=== PATIENT | female | born 1985 | race Caucasian/White ===

== ENCOUNTER 2017-12-20 06:07 | Inpatient (IN) | payer BC, OTHER ==
[2017-12-20] MEDS ORDERED: Oxytocin 10 Units/1 ML SDV ONE ×2 (06:52→07:36)
[2017-12-20] MEDS: Lactated Ringers 1,000 ML IV SCH ×2 (06:52→13:04)
[2017-12-20] MEDS ORDERED: Bupivacaine 0.75%/D5W 2 ML Amp ONE (07:24)
[2017-12-20] MEDS ORDERED: Phenylephrine 1% 10 MG/ML SDV ONE (07:31)
[2017-12-20] MEDS ORDERED: ePHEDrine 50 MG/ML SDV ONE (07:31)
[2017-12-20] MEDS ORDERED: Sodium Chloride 0.9% 20 ML ONE (07:32)
[2017-12-20] MEDS ORDERED: Lactated Ringers 1,000 ML ONE (07:36)
[2017-12-20] MEDS ORDERED: Ondansetron 4 MG/2 ML SDV ONE (07:36)
[2017-12-20] MEDS ORDERED: Clindamycin Phosphate 900 MG in Sodium Chloride 0.9% 100 ML IV ONE (08:00)
[2017-12-20] MEDS ORDERED: fentaNYL 100 MCG/2 ML SDV ONE ×2 (08:24→08:46)
[2017-12-20] MEDS: fentaNYL 100 MCG/2 ML SDV IVPUSH PRN ×6 (10:13→14:07)
--- NOTE | 2017-12-20 10:18 | OR ---
DATE OF PROCEDURE: 12/20/2017 PREOPERATIVE DIAGNOSIS: Term , multiparity, prior section. POSTOPERATIVE DIAGNOSES: Term , multiparity, prior section, true knot of the nuchal cord. PROCEDURE: Repeat section and bilateral tubal ligation. SURGEON: Willem Morales M.D. GOAT DRIVER: Melissa Grayson, nurse practitioner. Per ACOG standard of care guidelines, this procedure requires a first press operator. ANESTHESIA: Subarachnoid block. INDICATION: This 32-year-old white female is with her 3rd child. Her previous deliveries were by section. She currently is at 39 weeks gestation and is scheduled today for a repeat section. In addition, she has requested to the ethics committee and received permission for a bilateral tubal ligation. I counseled her for surgery including risks and alternatives, and she gave her informed consent to proceed. DESCRIPTION OF PROCEDURE: After adequate spinal anesthesia was obtained, a Beverly catheter was placed and a wedge was placed under her right flank. Her abdomen was prepped and draped in the usual sterile fashion. The leg compression stockings were in place and used during the entire procedure. Time-out was held. A Pfannenstiel incision was made. This was carried deep using Bovie cautery to the fascia. The fascia was divided, upper and lower subfascial flaps were developed. The muscles in the midline were . The peritoneum was elevated and incised. The peritoneal incision was extended to the length of the flaps using Bovie cautery while protecting underlying structures. Bladder flap was dissected free from the lower uterine segment over just a short area. A transverse lower uterine segment incision was then made releasing normal-appearing amniotic fluid. The incision was extended laterally and curved superiorly in both directions using bandage scissors as well as bluntly. The child's head was delivered. Melissa Grayson aspirated its nose and mouth free. The child was noted to have a nuchal cord. The child's body was delivered. The cord was doubly clamped and divided, and Melissa Grayson attended to the child. This was noted to be a baby boy, ultimately shown to have scores of 9 and 10. Cord blood was collected. The uterus was delivered up onto the anterior abdominal wall. The cord was noted to have a true knot in it. The placenta was delivered. The uterus was cleaned of residual membranes, all looked well. 10 units of Pitocin was directly injected into the uterine body and IV Pitocin was started by the Anesthesia Service. The transverse lower uterine segment incision was then closed with running locking stitch of #1 Vicryl. A 2nd running locking stitch of #1 Vicryl was placed over the 1st to further bolster the closure. The retrouterine space was irrigated and suctioned dry. The bilateral tubal ligation was then performed. We started with the right tube. It was grasped, elevated, and crossclamped forming a knuckle. A portion of this knuckle was excised and sent to pathology. The ends of the tube were crushed, cauterized, and suture ligated with 2-0 Prolene. The base of the knuckle was suture ligated with 2-0 Monocryl. Hemostasis was noted. Attention was then directed to the left tube. It was grasped and elevated and crossclamped forming a knuckle. A portion of the knuckle was excised and sent to pathology. The exposed ends of the tube were crushed, cauterized, and suture ligated with 2-0 Prolene. The base of the knuckle was suture ligated with 2-0 Monocryl. Hemostasis was noted. The bladder flap really did not exist as it was quite scarred and all we did was opened a little of it, nothing more was done at this point. The uterus was reduced back in the abdominal cavity. The muscles and peritoneum in the midline were closed with a running stitch of #2 Vicryl. The incision was irrigated and suctioned dry. The fascia was closed with a running stitch of #2 Vicryl. The incision was again irrigated and suctioned dry. A 4-0 Vicryl using a subcuticular stitch was placed to approximate the skin. Dermabond was applied. The patient tolerated the procedure well and was brought to the recovery room in good condition. Willem Morales MD /[id number]
[2017-12-20] MEDS: Acetaminophen/HYDROcodone 325-5 MG Tab PO PRN ×2 (10:40→21:46)
[2017-12-20] MEDS ORDERED: Lactated Ringers 500 ML IV ONE (11:38)
[2017-12-20] MEDS: Ondansetron 4 MG/2 ML SDV IVPUSH PRN ×3 (13:16→22:20)
[2017-12-20] MEDS ORDERED: Naloxone 0.4 MG/ML SDV IV PRN (14:25)
[2017-12-20] MEDS ORDERED: Lanolin 100% Cream 40 GM Tube TOP PRN (14:29)
[2017-12-20] MEDS ORDERED: fentaNYL/Normal Saline 600 MCG/30 ML PCA Vial IV PRN ×2 (14:30→17:46)
[2017-12-20] MEDS: Ketorolac 30 MG/ML SDV IVPUSH PRN ×2 (16:17→22:20)
[2017-12-20] MEDS: Docusate Sodium 100 MG Cap PO PRN (21:46)
[2017-12-21] MEDS: Lactated Ringers 1,000 ML IV SCH (02:46)
[2017-12-21] MEDS: Ketorolac 30 MG/ML SDV IVPUSH PRN ×3 (04:02→19:08)
[2017-12-21] MEDS: Docusate Sodium 100 MG Cap PO PRN (10:12)
--- NOTE | 2017-12-21 12:55 | PN ---
DATE OF SERVICE: 12/21/2017 SUBJECTIVE: The patient is doing very well today. Pain is well controlled. She has no nausea, vomiting, shortness of breath, or chest pain. OBJECTIVE: VITAL SIGNS: Stable. SKIN: Incision is healing well without signs of infection. ASSESSMENT: Status post . PLAN: The patient will have the Beverly removed. Continue work on diet, activity. Anticipate discharge in next 24 to 48 hours. Claus Jackson MD /[id number]
[2017-12-21] MEDS: Acetaminophen/HYDROcodone 325-5 MG Tab PO PRN ×3 (14:12→22:12)
[2017-12-22] MEDS: Acetaminophen/HYDROcodone 325-5 MG Tab PO PRN ×5 (02:32→19:50)
[2017-12-22] MEDS: Docusate Sodium 100 MG Cap PO PRN (08:48)
--- NOTE | 2017-12-22 09:35 | PCM.SURGPN ---
- General Info Date of Service: 12/22/17 Date of Surgery/Procedure: 12/20/17 POD#: 2 Post-Op Diagnosis: Section and BTL Admission Diagnosis/Problem: section Functional Status: Reports: Pain Controlled (Notes discomfort at end of her 4 hour pain Rx cycle. ), Tolerating Diet, Ambulating, Urinating, Incentive Spirometry - Review of Systems General: Reports: No Symptoms HEENT: Reports: No Symptoms Pulmonary: Reports: No Symptoms Cardiovascular: Reports: No Symptoms Gastrointestinal: Reports: Abdominal Pain (Pain at end of 4 hour pain Rx cycle. ) Genitourinary: Reports: No Symptoms Musculoskeletal: Reports: No Symptoms Skin: Reports: No Symptoms Neurological: Reports: No Symptoms Psychiatric: Reports: No Symptoms - Patient Data Vitals - Most Recent: Last Vital Signs Temp 97.7 F 12/22/17 08:35 Pulse 82 12/22/17 08:35 Resp 18 12/22/17 08:35 BP 130/60 12/22/17 08:35 Pulse Ox 97 12/22/17 08:35 Weight - Most Recent: 172 lb 6.4 oz I&O - Last 24 Hours: Intake & Output 12/21/17 12/22/17 12/22/17 22:59 06:59 14:59 Intake Total 500 Output Total 450 Balance 50 Lab Results Last 24 Hrs: Laboratory Results - last 24 hr 12/22/17 Range/Units 05:21 WBC 10.2 (4.5-11.0) K/uL RBC 3.28 L (3.30-5.50) M/uL Hgb 9.7 L (12.0-15.0) g/dL Hct 28.9 L (36.0-48.0) % MCV 88 (80-98) fL MCH 30 (27-31) pg MCHC 34 (32-36) % Plt Count 202 (150-400) K/uL Med Orders - Current: Current Medications Hydrocodone Bitart/Acetaminophen ([place] 325-5 Mg) 1 - 2 tab PO Q4H PRN PRN Reason: Pain Last Admin: 12/22/17 06:04 Dose: 2 tab Docusate Sodium (Colace) 100 mg PO DAILY PRN PRN Reason: Constipation Last Admin: 12/22/17 08:48 Dose: 100 mg Emollient Ointment (Lansinoh Hpa) 40 gm TOP ASDIRECTED PRN PRN Reason: nipples Last Admin: 12/20/17 14:49 Dose: 1 applic Naloxone HCl (Narcan) 0.1 mg IV ASDIRECTED PRN PRN Reason: DYSPNEA Ondansetron HCl (Zofran) 4 mg IVPUSH Q4H PRN PRN Reason: Nausea/Vomiting Last Admin: 12/20/17 22:20 Dose: 4 mg Discontinued Medications Bupivacaine HCl/Dextrose (Marcaine 0.75% Spinal) Confirm Administered Dose 2 ml .ROUTE .STK-MED ONE Stop: 12/20/17 07:25 Ephedrine Sulfate (Ephedrine Sulfate) Confirm Administered Dose 50 mg .ROUTE .STK-MED ONE Stop: 12/20/17 07:32 Fentanyl (Sublimaze) Confirm Administered Dose 100 mcg .ROUTE .STK-MED ONE Stop: 12/20/17 08:25 Fentanyl (Sublimaze) Confirm Administered Dose 100 mcg .ROUTE .STK-MED ONE Stop: 12/20/17 08:47 Fentanyl (Sublimaze) 50 mcg IVPUSH Q30M PRN PRN Reason: Pain Last Admin: 12/20/17 14:07 Dose: 50 mcg Fentanyl Citrate (Fentanyl In Ns 20 Mcg/Ml 30 Ml Human Resources Psychologist) 0 mcg IV ASDIRECTED PRN; Protocol PRN Reason: PAIN Last Admin: 12/20/17 14:39 Dose: 600 mcg Fentanyl Citrate (Fentanyl In Ns 20 Mcg/Ml 30 Ml Human Resources Psychologist) 25 mcg IV ASDIRECTED PRN ; Protocol PRN Reason: PAIN Last Admin: 12/21/17 03:58 Dose: 600 mcg Lactated Ringer's (Ringers, Lactated) 1,000 mls @ 100 mls/hr IV ASDIRECTED PACO Last Admin: 12/21/17 02:46 Dose: 100 mls/hr Sodium Chloride (Normal Saline) Confirm Administered Dose 20 mls @ as directed .ROUTE .STK-MED ONE Stop: 12/20/17 07:33 Clindamycin Phosphate 900 mg/ (Sodium Chloride) 106 mls @ 200 mls/hr IV ONETIME ONE Stop: 12/20/17 08:31 Last Admin: 12/20/17 08:40 Dose: 200 mls/hr Lactated Ringer's (Ringers, Lactated) Confirm Administered Dose 1,000 mls @ as directed .ROUTE .STK-MED ONE Stop: 12/20/17 07:37 Lactated Ringer's (Ringers, Lactated) 500 mls @ 500 mls/hr IV BOLUS ONE Stop: 12/20/17 12:37 Last Admin: 12/20/17 11:59 Dose: 500 mls/hr Ketorolac Tromethamine (Toradol) 30 mg IVPUSH Q6H PRN PRN Reason: Pain Stop: 12/25/17 16:03 Last Admin: 12/21/17 19:08 Dose: 30 mg Ondansetron HCl (Zofran) Confirm Administered Dose 4 mg .ROUTE .STK-MED ONE Stop: 12/20/17 07:37 Oxytocin (Pitocin) Confirm Administered Dose 10 unit .ROUTE .STK-MED ONE Stop: 12/20/17 06:53 Last Admin: 12/20/17 08:25 Dose: 10 unit Oxytocin (Pitocin) Confirm Administered Dose 20 unit .ROUTE .STK-MED ONE Stop: 12/20/17 07:37 Phenylephrine HCl (Olman-Synephrine) Confirm Administered Dose 10 mg .ROUTE .STK- MED ONE Stop: 12/20/17 07:32 - Exam Wound/Incisions: Healing Well, No Drainage General: Alert, Oriented, Cooperative, No Acute Distress Lungs: Clear to Auscultation, Normal Respiratory Effort Cardiovascular: Regular Rate, Regular Rhythm GI/Abdominal Exam: Normal Bowel Sounds Extremities: Normal Inspection Skin: Warm, Dry, Intact Neurological: No New Focal Deficit Psy/Mental Status: Alert, Normal Affect, Normal Mood - Problem List & Annotations (1) Status post repeat low transverse section SNOMED Code(s): 474076919, 40712752, 378678595, 125919531, 470140043 Code(s): Z98.89 - OTHER SPECIFIED POSTPROCEDURAL STATES * DO NOT USE * Status: Acute Current Visit: Yes - Problem List Review Problem List Initiated/Reviewed/Updated: Yes - My Orders Last 24 Hours: Active Orders 24 hr Category Date Time Status Ketorolac [Toradol] Med 12/22/17 09:30 Ordered 10 mg PO Q6H Medication Orders Hydrocodone Bitart/Acetaminophen ([place] 325-5 Mg) 1 - 2 tab PO Q4H PRN PRN Reason: Pain Last Admin: 12/22/17 06:04 Dose: 2 tab Admin: 12/22/17 02:32 Dose: 2 tab Admin: 12/21/17 22:12 Dose: 2 tab Admin: 12/21/17 18:17 Dose: 2 tab Admin: 12/21/17 14:12 Dose: 2 tab Admin: 12/20/17 21:46 Dose: 2 tab Docusate Sodium (Colace) 100 mg PO DAILY PRN PRN Reason: Constipation Last Admin: 12/22/17 08:48 Dose: 100 mg Admin: 12/21/17 10:12 Dose: 100 mg Admin: 12/20/17 21:46 Dose: 100 mg Emollient Ointment (Lansinoh Hpa) 40 gm TOP ASDIRECTED PRN PRN Reason: nipples Last Admin: 12/20/17 14:49 Dose: 1 applic Naloxone HCl (Narcan) 0.1 mg IV ASDIRECTED PRN PRN Reason: DYSPNEA Ondansetron HCl (Zofran) 4 mg IVPUSH Q4H PRN PRN Reason: Nausea/Vomiting Last Admin: 12/20/17 22:20 Dose: 4 mg Admin: 12/20/17 17:48 Dose: 4 mg Admin: 12/20/17 13:16 Dose: 4 mg - Assessment Assessment (Free Text/Narrative):: Doing well. She receives [place] q 4 hours and notes pain at the end of the 4 hour period. - Plan Plan (Free Text/Narrative):: Change Toradal to oral from IV. Probably home tomorrow.
[2017-12-22] MEDS: Ketorolac 10 MG Tab PO SCH ×3 (10:10→22:17)
[2017-12-22] MEDS: Docusate Sodium 100 MG Cap PO SCH (21:13)
[2017-12-23] MEDS: Acetaminophen/HYDROcodone 325-5 MG Tab PO PRN ×3 (00:16→09:47)
[2017-12-23] MEDS: Ketorolac 10 MG Tab PO SCH ×2 (03:34→09:07)
--- NOTE | 2017-12-23 06:14 | PCM.DCSUM1 ---
Discharge Summary - Hospital Course Free Text/Narrative:: This 32 year old white female was admitted on December 20, 2017 for a repeat section and bilateral tubal ligation. The [facility] was approved by the ethics committee. The operation was performed delivering a boy with APGARS of 9 and 10. Her post operative recovery was unremarkable. She is eating well, afebrile and would like to go home at the present time. She is discharged home in good condition. Brief History: See above narrative. Diagnosis: Stroke: No Modified Bullock Scale: No Symptoms at All Modified Bullock Scale Score: 0 - Discharge Data Discharge Date: 12/23/17 Discharge Disposition: Home, Self-Care 01 Condition: Good - Discharge Diagnosis/Problem(s) (1) Status post repeat low transverse section SNOMED Code(s): 548979710, 45011706, 205630984, 350404998, 404776086 ICD Code: Z98.89 - OTHER SPECIFIED POSTPROCEDURAL STATES * DO NOT USE * Status: Acute Current Visit: Yes - Patient Summary/Data Operative Procedure(s) Performed: Repeat section and bilateral tubal ligation. Consults: Consultations 12/20/17 09:28 Respiratory Care Assess and Treatment [CONS] Routine Comment: Physician Instructions: Hospital Course: See above narrative. - Patient Instructions Diet: Usual Diet as Tolerated Activity: No Lifting Over 10 Pounds, No Strenuous Activities (For six weeks from surgery. ) Driving, Other: Do not drive while taking narcotic pain medication. Showering/Bathing: May Shower Notify Provider of: Fever, Increased Pain, Swelling and Redness, Drainage, Nausea and/or Vomiting - Discharge Plan *PRESCRIPTION DRUG MONITORING PROGRAM REVIEWED*: No *COPY OF PRESCRIPTION DRUG MONITORING REPORT IN PATIENT URI: No Prescriptions/Med Rec: Acetaminophen/HYDROcodone [[place] 325-5 MG] 1 - 2 tab PO Q4H PRN #30 tablet PRN Reason: Pain Docusate Sodium [Colace] 100 mg PO BID #50 cap Ketorolac [Toradol] 10 mg PO Q6H #10 tablet Home Medications: Home Meds Vit 90/Iron Fum/Folic [ Formula] 1 tab PO DAILY 07/29/14 [ History] Fluticasone Propionate [Flonase] 1 spray NS DAILY 10/28/14 [History] Guaifenesin/Pseudoephedrne HCl [Mucinex D ER] 1 each PO ASDIRECTED 10/28/14 [ History] Ondansetron HCl [Zofran] 4 mg PO Q8H 12/18/17 [History] Oxymetazoline HCl [No Drip Nasal [place]] 1 applic BILL ASDIRECTED 12/18/17 [ History] Tacrolimus [Protopic 0.1% Oint] 1 applic TOP BID 12/18/17 [History] Acetaminophen/HYDROcodone [[place] 325-5 MG] 1 - 2 tab PO Q4H PRN #30 tablet 12/23 [Rx] Docusate Sodium [Colace] 100 mg PO BID #50 cap 12/23/17 [Rx] Ketorolac [Toradol] 10 mg PO Q6H #10 tablet 12/23/17 [Rx] Lanolin [Lansinoh HPA] 40 gm TOP ASDIRECTED PRN tube 12/23/17 [Rx] Referrals: Willem Morales MD [Physician] - (See me in [facility] in about two weeks. ) Melissa Grayson CNM [Primary Care Provider] - (See her in [facility] with child in about two weeks and about eight weeks. ) - Discharge Summary/Plan Comment DC Time >30 min.: No Discharge Summary/Plan Comment: See above narrative. - General Info Date of Service: 12/23/17 Subjective Update: Doing well and wants to go home. - Review of Systems General: Reports: No Symptoms HEENT: Reports: No Symptoms Pulmonary: Reports: No Symptoms Cardiovascular: Reports: No Symptoms Gastrointestinal: Reports: No Symptoms Genitourinary: Reports: No Symptoms Musculoskeletal: Reports: No Symptoms Skin: Reports: No Symptoms Neurological: Reports: No Symptoms Psychiatric: Reports: No Symptoms - Patient Data Vitals - Most Recent: Last Vital Signs Temp 97.5 F 12/23/17 03:00 Pulse 73 12/23/17 03:00 Resp 18 12/23/17 03:00 BP 119/60 12/23/17 03:00 Pulse Ox 96 12/23/17 03:00 Weight - Most Recent: 172 lb 6.4 oz I&O - Last 24 hours: Intake & Output 12/22/17 12/22/17 12/23/17 14:59 22:59 06:59 Intake Total 480 1600 Balance 480 1600 Lab Results - Last 24 hrs: Laboratory Results - last 24 hr 12/20/17 Range/Units 06:30 Antibody Identification Cancelled Med Orders - Current: Current Medications Hydrocodone Bitart/Acetaminophen ([place] 325-5 Mg) 1 - 2 tab PO Q4H PRN PRN Reason: Pain Last Admin: 12/23/17 05:28 Dose: 2 tab Docusate Sodium (Colace) 100 mg PO BID PACO Last Admin: 12/22/17 21:13 Dose: 100 mg Emollient Ointment (Lansinoh Hpa) 40 gm TOP ASDIRECTED PRN PRN Reason: nipples Last Admin: 12/20/17 14:49 Dose: 1 applic Ketorolac Tromethamine (Toradol) 10 mg PO Q6H [facility] Stop: 12/25/17 10:01 Last Admin: 12/23/17 03:34 Dose: 10 mg Naloxone HCl (Narcan) 0.1 mg IV ASDIRECTED PRN PRN Reason: DYSPNEA Ondansetron HCl (Zofran) 4 mg IVPUSH Q4H PRN PRN Reason: Nausea/Vomiting Last Admin: 12/20/17 22:20 Dose: 4 mg Discontinued Medications Bupivacaine HCl/Dextrose (Marcaine 0.75% Spinal) Confirm Administered Dose 2 ml .ROUTE .STK-MED ONE Stop: 12/20/17 07:25 Docusate Sodium (Colace) 100 mg PO DAILY PRN PRN Reason: Constipation Last Admin: 12/22/17 08:48 Dose: 100 mg Ephedrine Sulfate (Ephedrine Sulfate) Confirm Administered Dose 50 mg .ROUTE .STK-MED ONE Stop: 12/20/17 07:32 Fentanyl (Sublimaze) Confirm Administered Dose 100 mcg .ROUTE .STK-MED ONE Stop: 12/20/17 08:25 Fentanyl (Sublimaze) Confirm Administered Dose 100 mcg .ROUTE .STK-MED ONE Stop: 12/20/17 08:47 Fentanyl (Sublimaze) 50 mcg IVPUSH Q30M PRN PRN Reason: Pain Last Admin: 12/20/17 14:07 Dose: 50 mcg Fentanyl Citrate (Fentanyl In Ns 20 Mcg/Ml 30 Ml Patient Sitter) 0 mcg IV ASDIRECTED PRN; Protocol PRN Reason: PAIN Last Admin: 12/20/17 14:39 Dose: 600 mcg Fentanyl Citrate (Fentanyl In Ns 20 Mcg/Ml 30 Ml Patient Sitter) 25 mcg IV ASDIRECTED PRN ; Protocol PRN Reason: PAIN Last Admin: 12/21/17 03:58 Dose: 600 mcg Lactated Ringer's (Ringers, Lactated) 1,000 mls @ 100 mls/hr IV ASDIRECTED PACO Last Admin: 12/21/17 02:46 Dose: 100 mls/hr Sodium Chloride (Normal Saline) Confirm Administered Dose 20 mls @ as directed .ROUTE .STK-MED ONE Stop: 12/20/17 07:33 Clindamycin Phosphate 900 mg/ (Sodium Chloride) 106 mls @ 200 mls/hr IV ONETIME ONE Stop: 12/20/17 08:31 Last Admin: 12/20/17 08:40 Dose: 200 mls/hr Lactated Ringer's (Ringers, Lactated) Confirm Administered Dose 1,000 mls @ as directed .ROUTE .STK-MED ONE Stop: 12/20/17 07:37 Lactated Ringer's (Ringers, Lactated) 500 mls @ 500 mls/hr IV BOLUS ONE Stop: 12/20/17 12:37 Last Admin: 12/20/17 11:59 Dose: 500 mls/hr Ketorolac Tromethamine (Toradol) 30 mg IVPUSH Q6H PRN PRN Reason: Pain Stop: 12/25/17 16:03 Last Admin: 12/21/17 19:08 Dose: 30 mg Ondansetron HCl (Zofran) Confirm Administered Dose 4 mg .ROUTE .STK-MED ONE Stop: 12/20/17 07:37 Oxytocin (Pitocin) Confirm Administered Dose 10 unit .ROUTE .STK-MED ONE Stop: 12/20/17 06:53 Last Admin: 12/20/17 08:25 Dose: 10 unit Oxytocin (Pitocin) Confirm Administered Dose 20 unit .ROUTE .STK-MED ONE Stop: 12/20/17 07:37 Phenylephrine HCl (Olman-Synephrine) Confirm Administered Dose 10 mg .ROUTE .STK- MED ONE Stop: 12/20/17 07:32 - Exam General: Reports: Alert, Oriented, Cooperative, No Acute Distress Lungs: Reports: Clear to Auscultation, Normal Respiratory Effort Cardiovascular: Reports: Regular Rate, Regular Rhythm GI/Abdominal Exam: Normal Bowel Sounds Back Exam: Reports: Normal Inspection Extremities: Normal Inspection Skin: Reports: Warm, Dry, Intact Wound/Incisions: Reports: Healing Well Neurological: Reports: No New Focal Deficit Psy/Mental Status: Reports: Alert, Normal Affect, Normal Mood
[2017-12-23 07:22] VITALS: BP 123/73
[2017-12-23] MEDS: Docusate Sodium 100 MG Cap PO SCH (09:47)
== END 2017-12-23 10:17 | disposition home or self-care (01) | DRG 540 ==
LOC: JP.SDS 06:07 → JP.OB 08:21 → JP.MS 09:00
PROVIDERS: ADMIT Nurse Practitioner Family; ATTEND Surgery
PROC: 10D00Z1 Extraction of Products of Conception, Low, Open Approach (ICD-10-PCS; principal; 2017-12-20)
PROC: 0UB70ZZ Excision of Bilateral Fallopian Tubes, Open Approach (ICD-10-PCS; principal; 2017-12-20)
PROC: 6A550ZT Pheresis of Cord Blood Stem Cells, Single (ICD-10-PCS; principal; 2017-12-20)
DX: O34.211 Maternal care for low transverse scar from previous cesarean delivery (principal); N85.8 Other specified noninflammatory disorders of uterus; Z3A.39 39 weeks gestation of pregnancy; Z37.0 Single live birth; Z88.1 Allergy status to other antibiotic agents; Z88.0 Allergy status to penicillin; Z88.2 Allergy status to sulfonamides; Z87.891 Personal history of nicotine dependence; Z30.2 Encounter for sterilization; O69.81X0 Labor and delivery complicated by cord around neck, without compression, not applicable or unspecified; O69.2XX0 Labor and delivery complicated by other cord entanglement, with compression, not applicable or unspecified
CPT/HCPCS: 36415; 80048; 80305-QW; 84132; 85027; 85460; 86850; 86900; 86901; 94762; A9270-GY; J1885; J2370; J2405; J2590; J2790; J3010; J7030; J7050; J7120; S0077